=== PATIENT | female | born 1965 | race Caucasian/White ===

== ENCOUNTER → 2016-08-30 | Outpatient (CLI) | payer BC ==
--- NOTE | 2016-08-31 10:49 | MM ---
Reason for exam: screening (asymptomatic). Last mammogram was performed 1 year and 1 month ago. History: Patient is postmenopausal. Physical Findings: A clinical breast exam by your physician is recommended on an annual basis and results should be correlated with mammographic findings. MG 3D Screening Mammo W/Cad Bilateral CC and MLO view(s) were taken. Prior study comparison: August 07, 2015, bilateral MG 3d screening mammo w/cad. November 04, 2014, left breast MG diagnostic mammo LT w CAD. The breast tissue is extremely dense which could obscure a lesion on mammography. There is no discrete abnormality. No significant changes when compared with prior studies. ASSESSMENT: Negative, BI-RAD 1 RECOMMENDATION: Routine screening mammogram of both breasts in 1 year.
== END | disposition home or self-care (01) ==
LOC: RADMAMWWP 06:57
PROVIDERS: ATTEND Family Medicine
DX: Z12.31 Encounter for screening mammogram for malignant neoplasm of breast (principal)
CPT/HCPCS: 77063; G0202

== ENCOUNTER 2017-01-10 07:59 | Day surgery (SDC) | payer BC ==
[2017-01-05 15:29] VITALS: BMI 18.4
[~2017-01-10 07:59] MED LIST: LACTATED RINGERS 1,000 ML IV SCH; LIDOCAINE 1% 20 ML VIAL (10MG/ML) FOR IV START INTRADERMA PRN
[2017-01-10 08:17] VITALS: RESP 16; TEMP 97.9
[2017-01-10] MEDS ORDERED: LIDOCAINE 1% INJ 10MG/ML (20 ML MDV) ONE (08:31)
[2017-01-10] MEDS ORDERED: PROPOFOL 10 MG/ML 20 ML VIAL IV ONE (08:31)
[2017-01-10] MEDS ORDERED: LACTATED RINGERS 1,000 ML IV ONE (08:59)
--- NOTE | 2017-01-10 09:07 | P.OP ---
Date of Procedure: 01/10/17 Preoperative Diagnosis: Blood per rectum Postoperative Diagnosis: Internal and external hemorrhoids Procedure(s) Performed: Colonoscopy Implants: Anesthesia: NIC Surgeon: Annika Young Estimated Blood Loss (ml): 0 IV fluids (ml): 1,000 Pathology: none sent Condition: stable Disposition: PACU Indications for Procedure: Blood per rectum, weight loss Operative Findings: Tortuous bowel, internal/external hemorrhoids Description of Procedure: Patient was taken to the endoscopy suite and placed in the left lateral decubitus position. Sedation was administered. Rectal examination was performed. Patient was noted to have external hemorrhoids. She had good sphincter tone no masses. Colonoscope was passed through the anus into the rectum. Was passed through the sigmoid colon up to the splenic flexure. Was passed through the transverse colon hepatic flexure and right colon down to the area of the cecum. Approximately 9 minutes were taken to withdraw the scope from the cecum. Careful attention to mucosal detail was performed. No mucosal lesions of concern were identified in the cecum or right colon. No mucosal lesions of concern noted in the transverse colon. No mucosal lesions of concern in the left colon or sigmoid colon. The scope was brought down into the rectum where it was retroflexed and internal hemorrhoids were identified. Impression/plan: 1. Internal/external hemorrhoids 2. tortous bowel Plan: 1. conservative managment 2. repeat scope 7-10 years
--- NOTE | 2017-01-10 09:08 | P.DS ---
Providers Attending physician: Annika Young Primary care physician: Malcom Cee Plan - Discharge Summary New Discharge Prescriptions: No Action Diphenoxylate HCl/Atropine [Lomotil] 1 tab PO DAILY PRN PRN Reason: Diarrhea Fluticasone/Salmeterol [Advair 250-50 Diskus] 1 inhalation PO DAILY Magnesium 400 mg PO DAILY Discharge Medication List Diphenoxylate HCl/Atropine [Lomotil] 1 tab PO DAILY PRN 12/18/14 [History] Fluticasone/Salmeterol [Advair 250-50 Diskus] 1 inhalation PO DAILY 12/18/14 [ History] Magnesium 400 mg PO DAILY 12/18/14 [History] Follow up Appointment(s)/Referral(s): Annika Young MD [STAFF PHYSICIAN] - 1 Week Activity/Diet/Wound Care/Special Instructions: Do not drive today Discharge Disposition: HOME SELF-CARE
[2017-01-10 09:25] VITALS: BP 103/65; PULSE 66
== END 2017-01-10 10:33 | disposition home or self-care (01) ==
LOC: ORWHC2ENDO 07:59
PROVIDERS: ATTEND Surgery
DX: K64.4 Residual hemorrhoidal skin tags (principal); K64.8 Other hemorrhoids; Q43.8 Other specified congenital malformations of intestine; Z88.1 Allergy status to other antibiotic agents; Z91.02 Food additives allergy status; J45.909 Unspecified asthma, uncomplicated; N39.3 Stress incontinence (female) (male); R63.4 Abnormal weight loss; N60.19 Diffuse cystic mastopathy of unspecified breast; Z79.899 Other long term (current) drug therapy; Z79.52 Long term (current) use of systemic steroids; Z90.711 Acquired absence of uterus with remaining cervical stump
CPT/HCPCS: 45378; J2001; J2704

== ENCOUNTER → 2017-11-22 | Outpatient (CLI) | payer BC ==
--- NOTE | 2017-11-24 10:44 | MM ---
Reason for exam: screening (asymptomatic). Last mammogram was performed 1 year and 3 months ago. History: Patient is postmenopausal. Physical Findings: A clinical breast exam by your physician is recommended on an annual basis and results should be correlated with mammographic findings. MG 3D Screening Mammo W/Cad Bilateral CC and MLO view(s) were taken. Prior study comparison: August 30, 2016, bilateral MG 3d screening mammo w/cad. August 07, 2015, bilateral MG 3d screening mammo w/cad. The breast tissue is extremely dense which could obscure a lesion on mammography. No significant changes when compared with prior studies. ASSESSMENT: Negative, BI-RAD 1 RECOMMENDATION: Routine screening mammogram of both breasts in 1 year. Patient should continue monthly self breast exam. A negative mammogram should not preclude additional follow up of suspicious palpable abnormalities.
== END | disposition home or self-care (01) ==
LOC: RADMAMWWP 07:05
PROVIDERS: ATTEND Obstetrics & Gynecology
DX: Z12.31 Encounter for screening mammogram for malignant neoplasm of breast (principal)
CPT/HCPCS: 77063; 77067

== ENCOUNTER → 2017-12-28 | Outpatient (CLI) | payer BC ==
[2017-12-28 07:25] LABS: HGB 13.5 gm/dL (11.4-16.0); MCH 29.6 pg (25.0-35.0); MCHC 32.1 g/dL (31.0-37.0); MCV 92.2 fL (80.0-100.0); Mean Platelet Volume 7.1; Platelet Count 226 k/uL (150-450); RBC 4.55 m/uL (3.80-5.40); RDW 12.6 % (11.5-15.5); WBC 3.6 k/uL (3.8-10.6)
[2017-12-28 07:52] LABS: ALT 32 U/L (9-52); AST 25 U/L (14-36); Alkaline Phosphatase 42 U/L (38-126); Anion Gap 4 mmol/L; Blood Urea Nitrogen 17 mg/dL (7-17); Calcium 9.6 mg/dL (8.4-10.2); Carbon Dioxide 30 mmol/L (22-30); Chloride 105 mmol/L (98-107); Cholesterol 211 mg/dL (<200); Glucose 89 mg/dL (74-99); HDL Cholesterol 99 mg/dL (40-60); LDL Cholesterol,Calculated 103 mg/dL (0-99); Sodium 139 mmol/L (137-145); Total Bilirubin 0.7 mg/dL (0.2-1.3); Total Protein 6.6 g/dL (6.3-8.2); Triglycerides 46 mg/dL (<150)
[2017-12-28 08:03] LABS: T4, Free (Free Thyroxine) 0.89 ng/dL (0.78-2.19)
[2017-12-28 12:06] LABS: Vitamin D 25 Hydroxy 25.1 ng/mL (30.0-100.0)
[2018-01-01 20:51] LABS: Large VLDL Particle Number,NMR <1.5 nmol/L (<=2.7)
== END | disposition home or self-care (01) ==
LOC: LABWHC1 06:42
PROVIDERS: ATTEND Obstetrics & Gynecology
DX: N95.1 Menopausal and female climacteric states (principal); Z13.220 Encounter for screening for lipoid disorders; Z13.1 Encounter for screening for diabetes mellitus
CPT/HCPCS: 36415; 80053; 80061; 82306; 82670; 83001; 83002; 83704; 84439; 84443; 84479; 85027

== ENCOUNTER → 2018-08-15 | Outpatient (CLI) | payer BC ==
--- NOTE | 2018-08-15 10:08 | MM ---
Reason for exam: clinical finding. Last mammogram was performed 9 months ago. History: Took hormonal contraceptives beginning at age 20. Indicated problem(s): palpable abnormality in both breasts. Physical Findings: Nurse Summary: 0.5cm nodule in the right breast at 2 o'clock and a 0.5cm nodule in the left breast at 1 o'clock (nurse ms). MG 3D Diag Mammo W/Cad DAWN Bilateral CC and MLO view(s) were taken. Prior study comparison: November 22, 2017, bilateral MG 3d screening mammo w/cad. August 30, 2016, bilateral MG 3d screening mammo w/cad. The breast tissue is extremely dense which could obscure a lesion on mammography. Rounded asymmetries on CC views only bilaterally at palpable sites. Ultrasound will be performed per physician order. These results were verbally communicated with the patient and result sheet given to the patient on 08/15/18. ASSESSMENT: Incomplete: need additional imaging evaluation, BI-RAD 0 RECOMMENDATION: Ultrasound of both breasts.
--- NOTE | 2018-08-15 10:13 | USB ---
Reason for exam: clinical finding. History: Took hormonal contraceptives beginning at age 20. Indicated problem(s): palpable abnormality in both breasts. US Breast BILAT Right complete breast ultrasound includes all four quadrants, the retroareolar region and axilla. Finding demonstrates a 0.8 x 0.3 x 0.7cm cystic cluster at 1 o'clock, a 2.5 x 0.9 x 1.4cm cystic lesion at 2 o'clock, two adjacent cysts at BB and a 1.0 x 0.4 x 0.6cm mixed lesion at 5 o'clock, complicated cyst with thin sepatations. Left complete breast ultrasound includes all four quadrants, the retroareolar region and axilla. Finding demonstrates a 0.8 x 0.3 x 0.6cm mixed lesion at 1 o'clock, a 0.8 x 0.3 x 0.8cm mixed lesion at 4 o'clock complicated cysts with thin septations, and a 1.0 x 0.4 x 0.9cm vascular, cystic cluster at 11 o'clock BB. These results were verbally communicated with the patient and result sheet given to the patient on 08/15/18. ASSESSMENT: Benign, BI-RAD 2 RECOMMENDATION: Routine screening mammogram of both breasts in 1 year.
== END | disposition home or self-care (01) ==
LOC: RADMAMWWP 08:16
PROVIDERS: ATTEND Family Medicine
DX: N63.12 Unspecified lump in the right breast, upper inner quadrant (principal)
CPT/HCPCS: 77062; 77066

== ENCOUNTER → 2018-08-23 | Outpatient (CLI) | payer BC ==
[2018-08-23 15:33] VITALS: BP 104/74; PULSE 84; RESP 16; TEMP 97.9; BMI 19.5
--- NOTE | 2018-08-23 16:10 | P.GSHP ---
History of Present Illness H&P Date: 08/23/18 Chief Complaint: lump in both breast Archana is a 53 year old white female who noted a lump in her right breast about two weeks ago. She underwent a bilateral mammogram on . This revealed extremely dense breast tissue and a bilateral ultrasound was ordered. On the ultrasound the patient was noted in the right breast to have multiple cystic clusters and in the left breast she was also noted to have multiple cystic clusters. This was felt to be benign BIRADS 2 and routine screening of both breast in 1 year was recommended. The patient however continues to feel probable change in the right breast. She does not complain of any pain in her breast. She has had a hysterectomy and is not sure when her menstrual cycles would be, although she does feel cyclical changes in her body. She drinks one to 2 cups of coffee per day. Occasionally eats dark chocolate, does not drink soda or other caffeinated beverages. Family History: father: melanoma mother: cervical cells atypical Hormonal History: menarche: 15 breast fed: yes, first born at 27 Patient had a blood Test done last year and was told there is no indication that she is menopausal at this time she did have a hysterectomy at the age of 36, done for bleeding BCP: 16 years hormones: none Past surgical history: 1. Hysterectomy ovaries were not removed 2. Left inguinal hernia repair 3. Bladder suspension 4. right wrist surgery Past medical history: 1. Connective tissue disease 2. Asthma 3. IBS Social History: smoke: none alcohol: 1 glass of wine/week drugs: none - Constitutional Constitutional: Denies chills, Denies fever - EENT Eyes: denies blurred vision, denies pain Ears: deny: decreased hearing, tinnitus Ears, nose, mouth and throat: Denies headache, Denies sore throat - Breasts Breasts: bilateral: as per HPI - Cardiovascular Cardiovascular: Denies chest pain, Denies shortness of breath - Respiratory Comment: asthma - Gastrointestinal Comment: had a colonoscopy 2016, all [place] Gastrointestinal: Reports diarrhea - Genitourinary (Female) Comment: bladder suspension Genitourinary: Denies dysuria, Denies hematuria - Menstruation Menstruation: Reports post hysterectomy - Musculoskeletal Comment: connective tissue disease Musculoskeletal: Denies myalgias - Integumentary Integumentary: Denies pruritus, Denies rash - Neurological Neurological: Denies numbness, Denies weakness - Psychiatric Psychiatric: Denies anxiety, Denies depression - Endocrine Endocrine: Denies fatigue, Denies weight change - Hematologic/Lymphatic Comment: none - Allergic/Immunologic Comment: none Past Medical History Past Medical History: Asthma Additional Past Medical History / Comment(s): IBS, weight loss History of Any Multi-Drug Resistant Organisms: None Reported Past Surgical History: Hernia Repair, Hysterectomy, Orthopedic Surgery Additional Past Surgical History / Comment(s): rt hand and wrist surgery, several colonoscopies Past Anesthesia/Blood Transfusion Reactions: Family History of Problems w/ Anesthesia, Motion Sickness, Postoperative Nausea & Vomiting (PONV) Additional Past Anesthesia/Blood Transfusion Reaction / Comment(s): family-PONV Past Psychological History: No Psychological Hx Reported Smoking Status: Never smoker Past Alcohol Use History: None Reported Past Drug Use History: None Reported - Past Family History Mother Family Medical History: No Reported History Medications and Allergies Home Medications Medication Instructions Recorded Confirmed Type Diphenoxylate HCl/Atropine 1 tab PO DAILY PRN 12/18/14 08/23/18 History [Lomotil] Allergies Allergy/AdvReac Type Severity Reaction Status Date / Time gluten Allergy Severe Diarrhea Verified 08/23/18 15:33 Milk Containing Products Allergy Severe Diarrhea Verified 08/23/18 15:33 [Dairy] Surgical - Exam Vital Signs Temp Pulse Resp BP Pulse Ox 97.9 F 84 16 104/74 97 08/23/18 15:28 08/23/18 15:28 08/23/18 15:28 08/23/18 15:28 08/23/18 15:28 BMI 19.6 - General well developed, well nourished, no distress - Eyes normal ocular movement - ENT no hearing loss, no congestion - Neck no masses, trachea midline - Respiratory normal respiratory effort, clear to auscultation - Cardiovascular Rhythm: regular Heart Sounds: normal: S1, S2 - Abdomen Abdomen: soft, non tender, no guarding, no rigid, no rebound - Integumentary no rash, no abnormal pigmentation - Neurologic no disoriented, no combative - Musculoskeletal normal gait, normal posture - Psychiatric oriented to time, oriented to person, oriented to place, speech is normal, memor y intact breast exam: Right breast: Multi-positional exam fibrocystic changes, dense breast, increased nodularity in the 2 to 3 o'clock position [place]: Shoddy adenopathy Left breast: Multi-positional exam fibrocystic changes, dense breast Left axilla: Shoddy adenopathy Results Mammogram and ultrasound revealed Assessment and Plan Assessment: Impression: 1. Abnormal bilateral mammogram 2. Abnormal ultrasound bilateral/cyst 3. Dense breasts 4. Fibrocystic breast changes 5. Nodularity right breast 3 o'clock position 6. Family history of melanoma 7. Asthma 8. Connective tissue disease uncertain as to etiology I discussed with the patient the fact that she has dense fibrocystic breast disease, and there is an area of increased nodularity 3 o'clock position in the right breast. We have talked about the option of an FNA and if this is benign in conjunction with her radiographic findings were most likely follow this with a repeat ultrasound in 3-4 months. The patient understands that this is atypical cells would recommend open excision in the operating room. She understands the risks and benefits and wishes to proceed. We have discussed stopping caffeine, and she is going to try. Plan: 1. Repeat bilateral mammogram and ultrasound in 1 year 2. FNA area of concern in the right breast at 3:00 3. Patient is going to stop her caffeine and see if this decreases the fibrocystic changes in her breast 4. Medical management of medical conditions CC: Dr. Cee
--- NOTE | 2018-08-23 16:21 | P.PCN ---
Date of Procedure: 08/23/18 Preoperative Diagnosis: Nodularity right breast 3:00 Postoperative Diagnosis: same Procedure(s) Performed: FNA right breast Surgeon: Annika Young Estimated Blood Loss (ml): 0 Pathology: other (cytology) Condition: stable Disposition: same day Indications for Procedure: Nodularity right breast Description of Procedure: The area of concern in the right breast was prepped using alcohol. A 22-gauge needle attached to 10 mL syringe was passed into the specimen vacuum suction was applied to the end of the syringe. Several passes were made into the area of concern. The specimen was retrieved and placed on a slide. A Band-Aid was placed over the area on the skin. Patient tolerated the procedure in stable condition. Specimen sent to pathology.
== END ==
LOC: WWCWWP 15:24
PROVIDERS: ATTEND Surgery
DX: N63.12 Unspecified lump in the right breast, upper inner quadrant (principal)
CPT/HCPCS: 88173; 88305

== ENCOUNTER → 2018-09-21 | Outpatient (CLI) | payer BC ==
[2018-09-21 13:49] VITALS: BP 116/70; PULSE 65; RESP 18; TEMP 97.3; BMI 19.5
--- NOTE | 2018-09-21 14:13 | P.GSHP ---
History of Present Illness H&P Date: 09/21/18 Chief Complaint: Nodule right breast The patient is a 53-year-old white female who noted a nodule in her right breast several weeks ago. She had a bilateral mammogram and [id number]. This revealed extremely dense breast tissue and she had a bilateral ultrasound performed. On the ultrasound she was noted in the right breast of multiple cystic clusters and in the left breast was noted to have multiple cystic clusters. This was felt to be benign BIRADS 2 and routine screening of both breasts in 1 year was recommended. However the patient continued to fill a change in her right breast and she was seen and an FNA was done of that area. The FNA revealed lipid droplet containing histiocytes and otherwise hypocellular aspiration suggestive of fat necrosis. Clinical correlation was suggested the possibility of incomplete sampling. After discussion with the patient we have opted to do an excision in the operating room of the palpable abnormality. The patient stated that she drank one to 2 cups of coffee per day and occasionally eats dark chocolate. She does not drink soda or other caffeinated beverages. She does not smoke. She has cut down in her coffee consumption but the area of nodularity remains persistent. Family history: Father: Melanoma Mother: Cervical cells with some atypia Hormonal history: Menarche: 15 , breast fed: Yes First born at 27 Menopause: Patient had a hysterectomy at the age of 36 ovaries were not removed control pills: 16 years Hormones: Negative Past surgical history: 1. Hysterectomy ovaries were not removed 2. Left inguinal hernia repair 3. Bladder suspension 4. Right wrist surgery. Past medical history: 1. Connective tissue disease 2. Asthma 2. Irritable bowel syndrome Social history: Smoke: Negative Alcohol: One glass of wine per week Drugs: Negative - Constitutional Constitutional: Denies chills, Denies fever - EENT Eyes: denies blurred vision, denies pain Ears: deny: decreased hearing, tinnitus Ears, nose, mouth and throat: Denies headache, Denies sore throat - Breasts Breasts: bilateral: as per HPI - Cardiovascular Cardiovascular: Denies chest pain, Denies shortness of breath - Respiratory Comment: asthma - Gastrointestinal Comment: IBS Gastrointestinal: Denies abdominal pain, Denies diarrhea, Denies nausea, Denies vomiting - Genitourinary (Female) Comment: bladder suspension - Menstruation Menstruation: Reports post hysterectomy - Musculoskeletal Comment: connective tissue disease - Integumentary Integumentary: Denies pruritus, Denies rash - Neurological Neurological: Denies numbness, Denies weakness - Psychiatric Psychiatric: Denies anxiety, Denies depression - Endocrine Endocrine: Reports fatigue - Hematologic/Lymphatic Comment: none - Allergic/Immunologic Allergic/Immunologic: Reports as per HPI Past Medical History Past Medical History: Asthma Additional Past Medical History / Comment(s): IBS. History of Any Multi-Drug Resistant Organisms: None Reported Past Surgical History: Hernia Repair, Hysterectomy, Orthopedic Surgery Additional Past Surgical History / Comment(s): Right hand and wrist surgery, several colonoscopies. Past Anesthesia/Blood Transfusion Reactions: Family History of Problems w/ Anesthesia, Motion Sickness, Postoperative Nausea & Vomiting (PONV) Additional Past Anesthesia/Blood Transfusion Reaction / Comment(s): Family-PONV. Past Psychological History: No Psychological Hx Reported Smoking Status: Never smoker Past Alcohol Use History: Occasional Past Drug Use History: None Reported - Past Family History Mother Family Medical History: No Reported History Medications and Allergies Home Medications Medication Instructions Recorded Confirmed Type Diphenoxylate HCl/Atropine 1 tab PO DAILY PRN 12/18/14 09/21/18 History [Lomotil] Cholecalciferol [Vitamin D3 (25 5,000 unit PO DAILY 09/21/18 09/21/18 History Mcg = 1000 Iu)] Allergies Allergy/AdvReac Type Severity Reaction Status Date / Time gluten Allergy Severe Diarrhea Verified 09/21/18 13:49 Milk Containing Products Allergy Severe Diarrhea Verified 09/21/18 13:49 [Dairy] Surgical - Exam Vital Signs Temp Pulse Resp BP Pulse Ox 97.3 F L 65 18 116/70 99 09/21/18 13:46 09/21/18 13:46 09/21/18 13:46 09/21/18 13:46 09/21/18 13:46 BMI 19.6 - General well developed, well nourished, no distress - Eyes normal ocular movement - ENT no hearing loss - Neck no masses, trachea midline - Respiratory normal respiratory effort, clear to auscultation - Cardiovascular Rhythm: regular Heart Sounds: normal: S1, S2 - Abdomen Abdomen: soft - Integumentary turgor normal - Neurologic no disoriented, no combative - Musculoskeletal normal gait, normal posture - Psychiatric oriented to time, oriented to place, memory intact breast exam: Breasts: right breast: Multiple positional exam increased nodularity 1 to 2 o'clock position discrete from the surrounding tissue, FNA nondiagnostic Right axilla: No adenopathy of concern Left breast: Multiple positional exam fibrocystic changes no dominant masses or nodules of concern Left axilla: No adenopathy of concern Results Mammogram and ultrasound reports reviewed Assessment and Plan Assessment: Impression: 1. Persistent right breast nodule on the 2 o'clock position 2. FNA nondiagnostic of the right breast 3. Dense breast 4. Fibrocystic breast changes 5. Family history of melanoma 6. History of asthma 7. Connective tissue disease uncertain as to etiology We have had a discussion regarding the results of the FNA. I discussed that I cannot tell with certainty what the area of nodularity is without resection. The area is somewhat elusive however is definitely present. After discussion the patient wishes this area be excised. She understands the risks and benefits and wishes to proceed. Plan: 1. Right breast excisional biopsy of palpable abnormality 1 to 2 o'clock position 2. Patient has decreased her caffeine intake and will continue to do so 3. Medical management of medical conditions Cc: Dr. Cee
== END | disposition home or self-care (01) ==
LOC: WWCWWP 13:32
PROVIDERS: ATTEND Surgery
DX: Z53.9 Procedure and treatment not carried out, unspecified reason (principal)

== ENCOUNTER → 2018-09-24 | Day surgery (SDC) | payer BC ==
[2018-09-21 08:39] VITALS: BMI 18.8
[~2018-09-24] MED LIST changes: +DEXAMETHASONE SOD PHOSPHATE 10 MG/ML 1 ML VIAL IV ONE; +HEPARIN SODIUM,PORCINE 5,000 UNIT/ML 1 ML VIAL SQ ONE; +LACTATED RINGERS 1,000 ML IV ONE; +LIDOCAINE 1% 20 ML VIAL (10MG/ML) FOR IV START INTRADERMA ONE; -LIDOCAINE 1% 20 ML VIAL (10MG/ML) FOR IV START INTRADERMA PRN; +LIDOCAINE 1% INJ 10MG/ML (20 ML MDV) ONE; +LIDOCAINE 1% INJ 10MG/ML (20 ML MDV) SQ ONE; +MIDAZOLAM 2 MG/2 ML VIAL IV PRN; +MIDAZOLAM 2 MG/2 ML VIAL ONE; +ONDANSETRON 4 MG/2 ML VIAL IVP ONE; +PROPOFOL 10 MG/ML 20 ML VIAL IV ONE; +SCOPOLAMINE 1.5MG/72HR PATCH TRANSDERM ONE; +WATER FOR INJECTION, STERILE 10 ML VIAL IV ONE; +ceFAZolin IN SWFI 2 GM/20 ML SYRINGE IVP ONE; +ePHEDrine SULFATE/0.9% NACL/PF 50 MG/5 ML SYRINGE IV ONE; +fentaNYL (PF) 50 MCG/ML 2 ML AMP ONE
[2018-09-24 07:17] VITALS: RESP 16
--- NOTE | 2018-09-24 08:59 | P.OP ---
Date of Procedure: 09/24/18 Preoperative Diagnosis: Nodule right breast, FNA nondiagnostic Postoperative Diagnosis: Same Procedure(s) Performed: Excisional biopsy of palpable nodularity right breast Anesthesia: LINDA Surgeon: Annika Young Estimated Blood Loss (ml): 5 IV fluids (ml): 1,000 Pathology: other (breast tissue) Condition: stable Disposition: same day Indications for Procedure: Palpable nodule right breast, FNA nondiagnostic Operative Findings: Dense breast tissue Description of Procedure: The patient is a 53-year-old white female who presented with a palpable nodule in her right breast. An FNA was nondiagnostic. Nodularity was persistent without specific radiographic correlation. After discussion the patient wishes for excisional biopsy. The patient was taken to the operating room and following induction of anesthesia the right breast was prepped and draped in a sterile fashion. A circumareolar incision was made and carried down to the breast tissue. The breast tissue was dissected in the anterior plane skin. The dissection was performed on the area of the palpable abnormality. The area of concern was then excised. Further mobilization of the breast tissue was performed in the anterior pectoralis fascial plane. Approximately 20 cm of tissue was mobilized, such that an onco-plastic closure could be performed. The deep tissues were reapproximated in an onco plastic fashion using 3-0 Vicryl suture. The skin was then closed using 3-0 Vicryl in the subcutaneous tissue followed by 4-0 Monocryl in a subcuticular area. Steri-Strips were placed. All instrument and sponge counts were correct at the end of the case. The patient tolerated the procedure in stable condition. The specimen was painted for orientation.
--- NOTE | 2018-09-24 09:01 | P.DS ---
Providers Attending physician: Annika Young Primary care physician: Malcom Cee Plan - Discharge Summary Discharge Rx Participant: No New Discharge Prescriptions: No Action Diphenoxylate HCl/Atropine [Lomotil] 1 tab PO DAILY PRN PRN Reason: Diarrhea Cholecalciferol [Vitamin D3 (25 Mcg = 1000 Iu)] 5,000 unit PO DAILY Tamsulosin HCl [Flomax] 0.4 mg PO DAILY Discharge Medication List Diphenoxylate HCl/Atropine [Lomotil] 1 tab PO DAILY PRN 12/18/14 [History] Cholecalciferol [Vitamin D3 (25 Mcg = 1000 Iu)] 5,000 unit PO DAILY 09/21/18 [History] Tamsulosin HCl [Flomax] 0.4 mg PO DAILY 09/24/18 [History] Follow up Appointment(s)/Referral(s): Annika Young MD [STAFF PHYSICIAN] - 1 Week Activity/Diet/Wound Care/Special Instructions: Do not drive today Patient may shower after 48 hours Discharge Disposition: HOME SELF-CARE
[2018-09-24 09:18] VITALS: TEMP 97
[2018-09-24] MEDS: HYDROmorphone 0.5 MG/0.5 ML SYRINGE IVP PRN ×4 (09:23→09:59)
[2018-09-24 10:28] VITALS: BP 119/73
[2018-09-24 10:29] VITALS: PULSE 63
== END | disposition home or self-care (01) ==
LOC: OR 07:03
PROVIDERS: ATTEND Surgery
DX: N60.11 Diffuse cystic mastopathy of right breast (principal); N60.81 Other benign mammary dysplasias of right breast; N60.31 Fibrosclerosis of right breast; R92.0 Mammographic microcalcification found on diagnostic imaging of breast; Z80.8 Family history of malignant neoplasm of other organs or systems; Z90.710 Acquired absence of both cervix and uterus; L94.9 Localized connective tissue disorder, unspecified; J45.909 Unspecified asthma, uncomplicated; K58.9 Irritable bowel syndrome, unspecified; Z91.02 Food additives allergy status; Z91.011 Allergy to milk products
CPT/HCPCS: 88307; 19120; J2250; J1644; J1100; J2405; J2001; J3010; J2704; J1170; J0690

== ENCOUNTER → 2018-09-28 | Outpatient (CLI) | payer BC ==
[2018-09-28 09:06] VITALS: BP 114/66; PULSE 74; RESP 16; TEMP 97.9; BMI 18.8
--- NOTE | 2018-09-28 09:44 | P.PN ---
Progress Note - Text Progress Note Date: 09/28/18 Patient is status post right breast biopsy on 09-24-18. Her pathology is benign fibrocystic changes. The patient has no postoperative complaints. Physical exam: Lungs: Clear Heart: Regular rate and rhythm Incision: Right breast clean and dry evidence of any infection Impression: Fibrocystic breast changes 2. No evidence of any cancer Plan: 1. Bilateral ultrasound in 4 months CC: Dr. Cee
== END | disposition home or self-care (01) ==
LOC: WWCWWP 08:52
PROVIDERS: ATTEND Surgery
DX: Z53.9 Procedure and treatment not carried out, unspecified reason (principal)

== ENCOUNTER → 2018-12-17 | Outpatient (CLI) | payer BC ==
--- NOTE | 2018-12-17 08:38 | USB ---
Reason for exam: clinical finding. History: Took hormonal contraceptives beginning at age 20. Physical Findings: Nurse did not find any significant physical abnormalities on exam. US Breast BILAT Right complete breast ultrasound includes all four quadrants, the retroareolar region and axilla. Finding demonstrates a 9 x 4 x 9mm oval, cystic lesion at 2 o'clock, a 5 x 3 x 6mm oval, cystic lesion at 9 o'clock and a 6 x 3 x 5mm oval, cystic lesion at 11 o'clock. Left complete breast ultrasound includes all four quadrants, the retroareolar region and axilla. Finding demonstrates a 1.7 x 0.3 x 1.6cm cystic cluster at 11 o'clock. These results were verbally communicated with the patient and result sheet given to the patient on 12/17/18. ASSESSMENT: Benign, BI-RAD 2 RECOMMENDATION: Routine screening mammogram of both breasts in 8 months. Back on schedule for August 2019.
== END | disposition home or self-care (01) ==
LOC: RADUSWWP 07:08
PROVIDERS: ATTEND Surgery
DX: R92.8 Other abnormal and inconclusive findings on diagnostic imaging of breast (principal)

== ENCOUNTER → 2019-01-04 | Outpatient (CLI) | payer BC ==
[2019-01-04 15:58] VITALS: BP 111/73; PULSE 78; RESP 16; TEMP 98; BMI 19.8
--- NOTE | 2019-01-04 16:08 | P.PN ---
Subjective Progress Note Date: 01/04/19 Archana is a 53-year-old white female who comes for breast evaluation. [place] [address] this was negative BIRADS 1 she [place] [address] this revealed in the right breast several cystic lesions in the left breast cystic cluster at 11:00 this was felt to be benign BIRADS 2 and routine screening of both breasts in 8 months was recommended. The patient has chronic nodularity bilaterally in her breast and nothing new is changed. The patient does drink some caffeinated beverages. She does not smoke and is not exposed to secondhand smoke. She does not eat large quantities of chocolate. Family history: Father: Melanoma Hormonal history: Menarche: 14 , breast-fed: Yes for splenectomy 27 Menopause: Patient had a hysterectomy at the age of 36 ovaries were not removed control pills: 16 years Hormones: Negative Past surgical history: Hysterectomy ovaries were not removed Left inguinal hernia repair Bladder suspension Right breast surgery Medical history: Connective tissue disease Asthma Irritable bowel syndrome Social history: Smoke: Negative Alcohol: One glass of wine per week Drugs: Negative Review of systems: HEENT: Wears glasses Lungs: Negative Heart: Negative GI: Irritable bowel syndrome : Status post hysterectomy Musculoskeletal: Connective tissue disease Neurologic: Negative Hematologic: Negative Endocrine: Negative ALLERGIES: Negative Objective - Exam BMI 19.8 - Constitutional General appearance: Present: average body habitus - EENT Eyes: Present: EOMI ENT: Present: hearing grossly normal - Neck Neck: Present: normal ROM - Respiratory Respiratory: bilateral: CTA - Cardiovascular Rhythm: regular Heart sounds: normal: S1, S2 - Gastrointestinal General gastrointestinal: Present: soft - Integumentary Integumentary: Present: normal turgor - Musculoskeletal Musculoskeletal: Present: gait normal - Psychiatric Psychiatric: Present: A&O x's 3, appropriate affect, intact judgment & insight - Additional findings Additional findings: breast exam: right breast: Multi-positional exam fibrocystic changes no dominant masses or nodules of concern Right axilla: No adenopathy of concern Left breast: Multiple positional exam no dominant masses or nodules of concern fibrocystic changes Left axilla: No adenopathy of concern Assessment and Plan Assessment: Impression: 1. fibrocystic changes 2. Connective tissue disease 3. Asthma 4. Irritable bowel syndrome Plan: 1. Bilateral mammogram in 8 months 2. Medical management of medical conditions 3. Follow-up. If any questions or concerns 4. Discussed decreasing caffeinated beverages. The patient understands that caffeine theophylline and nicotine may aggravate fibrocystic breast disease. Cc: Dr. Cee
== END ==
LOC: WWCWWP 15:39
PROVIDERS: ATTEND Surgery
DX: Z53.9 Procedure and treatment not carried out, unspecified reason (principal)

== ENCOUNTER → 2019-10-03 | Outpatient (CLI) | payer BC ==
--- NOTE | 2019-10-08 08:54 | MM ---
Reason for exam: screening (asymptomatic). Last mammogram was performed 1 year and 2 months ago. History: Patient has history of other cancer at age 54. Excisional biopsy of the right breast, 2019. Took hormonal contraceptives beginning at age 20. Physical Findings: A clinical breast exam by your physician is recommended on an annual basis and results should be correlated with mammographic findings. MG 3D Screening Mammo W/Cad Bilateral CC, MLO, and XCCL view(s) were taken. Prior study comparison: August 15, 2018, bilateral MG 3d diag mammo w/cad [facility]. November 22, 2017, bilateral MG 3d screening mammo w/cad. August 30, 2016, bilateral MG 3d screening mammo w/cad. The breast tissue is extremely dense which could obscure a lesion on mammography. There is chronic nodularity in the right breast superiorly on MLO view. No significant changes when compared with prior studies. ASSESSMENT: Benign, BI-RAD 2 RECOMMENDATION: Routine screening mammogram of both breasts in 1 year. Patient should continue monthly self breast exams. A negative report should not preclude additional follow up of suspicious palpable abnormalities.
== END | disposition home or self-care (01) ==
LOC: RADMAMWWP 09:25
PROVIDERS: ATTEND Surgery
DX: Z12.31 Encounter for screening mammogram for malignant neoplasm of breast (principal)
CPT/HCPCS: 77063; 77067

== ENCOUNTER → 2019-10-10 | Outpatient (CLI) | payer BC ==
[2019-10-10 14:37] VITALS: BP 100/62; PULSE 61; RESP 18; TEMP 98.3
--- NOTE | 2019-10-10 15:58 | P.PN ---
Subjective Progress Note Date: 10/10/19 Principal diagnosis: dense fibrocystic breast disease Archana is a 53-year-old white female who comes for breast evaluation. She had a bilateral mammogram performed on 10-03-19 this was negative BIRADS 2. She does not have any masses of concern in her breast. She had recent resection of a basal cell carcinoma from the right upper chest wall. This is approximately 5 cm in length. She is awaiting pathology results. Additionally she had liquid nitrogen applied to several areas which are healing at this time. She is not complaining of any recent increased breast pain. No complaint of any nipple discharge or skin changes. The patient does drink some caffeinated beverages. She does not smoke and is not exposed to secondhand smoke. She does not eat large quantities of chocolate, some dark chocolate daily. Family history: Father: Melanoma Hormonal history: Menarche: 14 , breast-fed: Yes for splenectomy 27 Menopause: Patient had a hysterectomy at the age of 36 ovaries were not removed control pills: 16 years Hormones: Negative Past surgical history: Hysterectomy ovaries were not removed Left inguinal hernia repair Bladder suspension Right breast surgery Excision basal cell carcinoma right chest wall Medical history: Connective tissue disease Asthma Irritable bowel syndrome Social history: Smoke: Negative Alcohol: One glass of wine per week Drugs: Negative Review of systems: HEENT: Wears glasses Lungs: Negative Heart: Negative GI: Irritable bowel syndrome : Status post hysterectomy Musculoskeletal: Connective tissue disease Neurologic: Negative Hematologic: Negative Endocrine: Negative ALLERGIES: Negative Objective - Vital Signs Vital signs: Vital Signs Temp 98.3 F 10/10/19 14:35 Pulse 61 10/10/19 14:35 Resp 18 10/10/19 14:35 BP 100/62 10/10/19 14:35 Pulse Ox 97 10/10/19 14:35 Intake & Output 10/09/19 10/10/19 10/10/19 18:59 06:59 18:59 Weight 58.967 kg - Exam BMI 20.4 - Constitutional General appearance: Present: average body habitus, cooperative - EENT Eyes: Present: EOMI ENT: Present: hearing grossly normal - Neck Neck: Present: normal ROM - Respiratory Respiratory: bilateral: CTA - Cardiovascular Rhythm: regular Heart sounds: normal: S1, S2 - Gastrointestinal General gastrointestinal: Present: normal bowel sounds, soft - Integumentary Integumentary Comment(s): incision right chest wall healing Integumentary: Present: normal turgor - Musculoskeletal Musculoskeletal: Present: gait normal - Psychiatric Psychiatric: Present: A&O x's 3, appropriate affect, intact judgment & insight - Additional findings Additional findings: breast exam: BRA 32B inspection: no nipple inversion palpation: Right breast: Multi-positional exam no dominant masses or nodules of concern, fibrocystic changes Right axilla: No adenopathy of concern Left breast: Multi-positional exam no dominant masses or nodules of concern Left axilla: No adenopathy of concern Assessment and Plan Assessment: Impression: 1. fibrocystic changes bilateral 2. basal cell cancer resected right chest wall Plan: 1. repeat bilateral mammogram in 1 year 2. physician exam in one year CC: Dr. Cee encounter 20 minutes, > 50% of time in planning and counselling
== END | disposition home or self-care (01) ==
LOC: WWCWWP 14:26
PROVIDERS: ATTEND Surgery
DX: Z53.9 Procedure and treatment not carried out, unspecified reason (principal)

== ENCOUNTER → 2020-10-08 | Outpatient (CLI) | payer BC ==
--- NOTE | 2020-10-09 11:31 | MM ---
Reason for exam: screening (asymptomatic). Last mammogram was performed 1 year ago. History: Patient has history of other cancer at age 54. Excisional biopsy of the right breast, 2019. Took hormonal contraceptives beginning at age 20. Physical Findings: A clinical breast exam by your physician is recommended on an annual basis and results should be correlated with mammographic findings. MG 3D Screening Mammo W/Cad Bilateral CC and MLO view(s) were taken. Prior study comparison: October 03, 2019, bilateral MG 3d screening mammo w/cad. August 15, 2018, bilateral MG 3d diag mammo w/cad [facility]. The breast tissue is heterogeneously dense. This may lower the sensitivity of mammography. There is no discrete abnormality. ASSESSMENT: Benign, BI-RAD 2 RECOMMENDATION: Routine screening mammogram of both breasts in 1 year.
== END | disposition home or self-care (01) ==
LOC: RADMAMWWP 09:17
PROVIDERS: ATTEND Surgery
DX: Z12.31 Encounter for screening mammogram for malignant neoplasm of breast (principal)
CPT/HCPCS: 77063; 77067

== ENCOUNTER → 2020-10-15 | Outpatient (CLI) | payer BC ==
[2020-10-15 10:33] VITALS: BP 126/84; PULSE 75; RESP 14; TEMP 98.3
--- NOTE | 2020-10-15 10:34 | P.PN ---
Subjective Progress Note Date: 10/15/20 Principal diagnosis: fibrocystic breast dense fibrocystic breast disease Archana is a 55-year-old white female who comes for breast evaluation. She had a bilateral mammogram performed on 10-08-20 this was benign BIRADS 2. She does not have any masses of concern in her breast. She has had a resection of a basal cell carcinoma from the right upper chest wall. This is approximately 5 cm in length. She is following at [facility]. Additionally she had liquid nitrogen applied to several areas which are healing at this time. She is not complaining of any recent increased breast pain. No complaint of any nipple discharge or skin changes. Does not complain of any new lumps masses or nodules in her breast. Caffeine: One to 2 cups of coffee per day Nicotine: Negative Chocolate: Occasional Family history: Father: Melanoma Hormonal history: Menarche: 14 , breast-fed: Yes for splenectomy 27 Menopause: Patient had a hysterectomy at the age of 36 ovaries were not removed control pills: 16 years Hormones: Negative Past surgical history: Hysterectomy ovaries were not removed Left inguinal hernia repair Bladder suspension Right breast surgery Excision basal cell carcinoma right chest wall Medical history: Connective tissue disease Asthma Irritable bowel syndrome Social history: Smoke: Negative Alcohol: One glass of wine per week Drugs: Negative Review of systems: HEENT: Wears glasses Lungs: Negative Heart: Negative GI: Irritable bowel syndrome : Status post hysterectomy Musculoskeletal: Connective tissue disease Neurologic: Negative Hematologic: Negative Endocrine: Negative ALLERGIES: Negative Objective - Constitutional General appearance: Present: cooperative - EENT Eyes: Present: EOMI ENT: Present: hearing grossly normal - Neck Neck: Present: normal ROM - Respiratory Respiratory: bilateral: CTA - Cardiovascular Rhythm: regular Heart sounds: normal: S1, S2 - Integumentary Integumentary: Present: normal turgor - Musculoskeletal Musculoskeletal: Present: gait normal - Psychiatric Psychiatric: Present: A&O x's 3, appropriate affect, intact judgment & insight - Additional findings Additional findings: Breast exam: BRA: 34A Inspection: Grade 2 ptosis bilateral Palpation: Right breast: Positional exam fibrocystic breasts with no discrete dominant masses or nodules of concern Right axilla: No adenopathy of concern Left breast: Multiple positional exam fibrocystic changes no dominant masses or nodules of concern Left axilla: No adenopathy of concern Assessment and Plan Assessment: Impression: 1. Fibrocystic breast changes bilateral 2. Basal cell cancer resected right chest wall/patient following a [facility] Plan: 1. Repeat bilateral mammogram in 1 year 2. Physician exam at that time 3. Patient bilateral mammogram 6321 benign BIRADS 2 CC: Dr. Cee
== END ==
LOC: WWCWWP 10:17
PROVIDERS: ATTEND Surgery
DX: N60.11 Diffuse cystic mastopathy of right breast (principal); N60.12 Diffuse cystic mastopathy of left breast; J45.909 Unspecified asthma, uncomplicated; C44.519 Basal cell carcinoma of skin of other part of trunk; Z98.890 Other specified postprocedural states; Z91.011 Allergy to milk products; Z91.018 Allergy to other foods

== ENCOUNTER → 2021-10-11 | Outpatient (CLI) | payer BC ==
--- NOTE | 2021-10-13 07:55 | MM ---
Reason for Exam: Screening (asymptomatic). Last screening mammogram was performed 12 month(s) ago. Patient History: Menarche at age 15. First Full-Term at age 27. Hysterectomy at age 36. Other cancer, age 54. Hormonal Contraceptives, from age 20 until age 36. 2019, Excisional Biopsy on the Right side. Risk Values: Eva 5 year model risk: 1.5%. NCI Lifetime model risk: 10.8%. Prior Study Comparison: 08/15/2018 Bilateral Diagnostic Mammogram, [facility]. 10/03/2019 Bilateral Screening Mammogram, [facility]. 10/08/2020 Bilateral Screening Mammogram, [facility]. Tissue Density: The breast tissue is extremely dense which could obscure a lesion on mammography. Findings: Analyzed By CAD. There is no suspicious group of microcalcifications or new suspicious mass in either breast. Stable benign calcifications. Overall Assessment: Benign, BI-RAD 2 Management: Screening Mammogram of both breasts in 1 year. A clinical breast exam by your physician is recommended on an annual basis and results should be correlated with mammographic findings. Electronically signed and approved by: Grant Sanchez M.D. Radiologis
== END | disposition home or self-care (01) ==
LOC: RADMAMWWP 07:27
PROVIDERS: ATTEND Surgery
DX: Z12.31 Encounter for screening mammogram for malignant neoplasm of breast (principal)
CPT/HCPCS: 77063; 77067

== ENCOUNTER → 2021-10-14 | Outpatient (CLI) | payer BC ==
[2021-10-14 08:56] VITALS: BP 126/72; PULSE 73; RESP 16; TEMP 98
--- NOTE | 2021-10-14 09:14 | P.PN ---
Subjective Progress Note Date: 10/14/21 Principal diagnosis: fibrocystic breast changes fibrocystic breast dense fibrocystic breast disease Archana is a 55-year-old white female who comes for breast evaluation. She had a bilateral mammogram performed on 10-11-21 this was benign BIRADS 2. She does not have any masses of concern in her breast. She has had a resection of a basal cell carcinoma from the right upper chest wall. This was approximately 5 cm in length. She is following at [facility]. Additionally she had liquid nitrogen applied to several areas which are healing at this time. She is not complaining of any recent increased breast pain. No complaint of any nipple discharge or skin changes. Does not complain of any new lumps masses or nodules in her breast. Caffeine: One to 2 cups of coffee per day Nicotine: Negative Chocolate: Occasional Family history: Father: Melanoma Hormonal history: Menarche: 14 , breast-fed: Yes for splenectomy 27 Menopause: Patient had a hysterectomy at the age of 36 ovaries were not removed control pills: 16 years Hormones: Negative Past surgical history: Hysterectomy ovaries were not removed Left inguinal hernia repair Bladder suspension Right breast surgery Excision basal cell carcinoma right chest wall Medical history: Connective tissue disease Asthma Irritable bowel syndrome Social history: Smoke: Negative Alcohol: One glass of wine per week Drugs: Negative Review of systems: HEENT: Wears glasses Lungs: Negative Heart: Negative GI: Irritable bowel syndrome : Status post hysterectomy Musculoskeletal: Connective tissue disease Neurologic: Negative Hematologic: Negative Endocrine: Negative ALLERGIES: Negative Objective - Vital Signs Vital signs: Vital Signs Temp 98.0 F 10/14/21 08:53 Pulse 73 10/14/21 08:53 Resp 16 10/14/21 08:53 BP 126/72 10/14/21 08:53 Pulse Ox 95 10/14/21 08:53 FiO2 Intake & Output 10/13/21 10/14/21 10/14/21 18:59 06:59 18:59 Weight 62.142 kg - Exam BMI 21.5 - Constitutional General appearance: Present: cooperative - EENT Eyes: Present: EOMI ENT: Present: hearing grossly normal - Neck Neck: Present: normal ROM - Respiratory Respiratory: bilateral: CTA - Cardiovascular Rhythm: regular Heart sounds: normal: S1, S2 - Gastrointestinal General gastrointestinal: Present: soft - Integumentary Integumentary: Present: normal turgor - Musculoskeletal Musculoskeletal: Present: gait normal - Psychiatric Psychiatric: Present: A&O x's 3, appropriate affect, intact judgment & insight - Additional findings Additional findings: Breast Exam: BRA: 36A inspection: bilateral grade 2 ptosis Palpation: Right breast: Multi-positional exam fibrocystic changes no dominant masses or nodules of concern Right axilla: No adenopathy of concern Left breast: Multi-positional exam fibrocystic changes no dominant masses or nodules of concern Left axilla: No adenopathy of concern Assessment and Plan Assessment: Impression: Bilateral fibrocystic breast changes Plan: Repeat bilateral mammogram in 1 year with physician exam at that time Patient shouldn't to follow up sooner any questions or concerns CC: Dr. Pierre
== END ==
LOC: WWCWWP 08:42
PROVIDERS: ATTEND Surgery
DX: R92.8 Other abnormal and inconclusive findings on diagnostic imaging of breast (principal); N60.11 Diffuse cystic mastopathy of right breast; N60.12 Diffuse cystic mastopathy of left breast; J45.909 Unspecified asthma, uncomplicated; Z91.011 Allergy to milk products; Z91.018 Allergy to other foods

== ENCOUNTER → 2022-03-30 | Outpatient (CLI) | payer BC ==
--- NOTE | 2022-03-30 13:19 | BD ---
EXAMINATION TYPE: Axial Bone Density DATE OF EXAM: 03/30/2022 COMPARISON: NONE CLINICAL HISTORY: 57 year old Female. ICD-10 CODE: N95.1 MENOPAUSAL AND FEMALE CLIMACTERIC STATES Height: 67 Weight: 135.8 FRAX RISK QUESTIONS: Alcohol (3 or more units per day): no Family History (Parent hip fracture): no Glucocorticoids (More than 3mos): yes (Ex: prednisone, prednisolone, methylprednisolone, dexamethasone, and hydrocortisone). History of Fracture in Adulthood: yes Secondary Osteoporosis: 1. Type 1 Diabetes: no 2. Hyperthyroidism: no 3. Menopause before 45: yes 4. Malnutrition: no 5. Chronic liver disease: no Rheumatoid Arthritis: no Current Tobacco Use: no RISK FACTORS HISTORY OF: History of Wrist Fracture: bilateral wrist Surgery to Spine/Hip(right/left)/Wrist (right/left): no Family History of Osteoporosis: yes Active: yes Diet low in dairy products/other sources of calcium: yes Postmenopausal woman: yes Lost more than 2 inches in height since high school: no MEDICATIONS: Prednisone or other steroids: yes How Long: for asthma Additional History: EXAM MEASUREMENTS: Bone mineral densitometry was performed using the [employer] System. Bone mineral density as measured about the Lumbar spine is: ----- L1-L4(G/cm2): 0.995 T Score Values are as follows: ----- L1: -2.0 ----- L2: -2.1 ----- L3: -1.3 ----- L4: -1.1 ----- L1-L4: -1.5 Bone mineral density : baseline Bone mineral density about the R hip (g/cm2): 0.888 Bone mineral density about the L hip (g/cm2): 0.913 T Score values are as follows: -----R Neck: -1.1 -----L Neck: -0.9 -----R Total: -0.8 -----L Total: -0.6 Bone mineral density : baseline FRAX%s: The graph provided illustrates a 8.1% chance for a major osteoporotic fx and a 1.1% chance fo r the hips probability for fx in 10 years time. IMPRESSION: Osteopenia (T Score between -2.5 and -1). There is slightly increased risk of fracture and the patient may be considered for treatment. Re-Screen 2-5 years. NOTE: T-SCORE=SD OF THE YOUNG ADULT MEAN.
== END | disposition home or self-care (01) ==
LOC: RADBDWWP 11:16
PROVIDERS: ATTEND Obstetrics & Gynecology
DX: M85.89 Other specified disorders of bone density and structure, multiple sites (principal); Z79.52 Long term (current) use of systemic steroids
CPT/HCPCS: 77080

== ENCOUNTER → 2022-04-08 | Outpatient (CLI) | payer BC ==
--- NOTE | 2022-04-08 10:08 | US ---
EXAMINATION TYPE: US abdomen complete DATE OF EXAM: 04/08/2022 COMPARISON: NONE CLINICAL HISTORY: R10.11 RT UPPER QUADRANT PAIN. RUQ pain. TECHNIQUE: Multiple sonographic images of the abdomen are obtained. FINDINGS: EXAM MEASUREMENTS: Liver Length: 16.2 cm right normal is 15.5 cm. Gallbladder Wall: 0.27 cm CBD: 0.48 cm Spleen: 8.4 cm Right Kidney: 11.9 x 5.3 x 4.7 cm Left Kidney: 11.1 x 5.4 x 5.5 cm OFFICE RN NOTES: Exam is limited due to overlying bowel gas. Pancreas: Tail was not well seen. Liver: No abnormalities seen Gallbladder: Fold seen. Appears anechoic. Evidence for sonographic Bolden's sign: No CBD: Appears wnl Spleen: Limited due to gas. Right Kidney: Renal pelvis appears dilated, scanned post void as well. Left Kidney: No hydronephrosis or masses seen Upper IVC: Appears wnl Abd Aorta: Portions seen appear wnl, iliacs were obscured. IMPRESSION: 1. Minimal prominence of the liver size. 2. Minimal prominence of an extrarenal pelvis. 3. No acute ultrasound abnormality of the abdomen.
== END | disposition home or self-care (01) ==
LOC: RADUSWWP 09:11
PROVIDERS: ATTEND Internal Medicine Gastroenterology
DX: R10.11 Right upper quadrant pain (principal)
CPT/HCPCS: 76700

== ENCOUNTER → 2022-04-19 | Outpatient (CLI) | payer BC ==
[2022-04-19 14:49] LABS: Total Eosinophil Count 23 #EOS/uL (150-300)
[2022-04-19 15:24] LABS: Erythrocyte Sedimentation Rate 9 mm/hr (0-20)
== END | disposition home or self-care (01) ==
LOC: LABWHC1 10:06
PROVIDERS: ATTEND Internal Medicine Critical Care Medicine
DX: J45.909 Unspecified asthma, uncomplicated (principal)
CPT/HCPCS: 36415; 82785; 85008; 85652; 86141

== ENCOUNTER → 2022-08-26 | Outpatient (CLI) | payer BC ==
[2022-08-26 10:51] LABS: Basophils # (A) 0.03 X 10*3/uL (0.00-0.10); Basophils % (A) 0.9 %; Eosinophils # (A) 0.09 X 10*3/uL (0.04-0.35); Eosinophils % (A) 2.6 %; HCT 39.8 % (37.2-46.3); HGB 12.8 g/dL (12.0-15.0); Immature Grans, Automated 0.3 %; Lymphocytes # (A) 1.13 X 10*3/uL (0.90-5.00); Lymphocytes % (A) 32.6 %; MCH 29.8 pg (27.0-32.0); MCHC 32.2 g/dL (32.0-37.0); MCV 92.8 fL (80.0-97.0); Mean Platelet Volume 9.8 fL (9.5-12.2); Monocytes % (A) 14.4 %; NRBC Per 100 WBC 0 /100 WBCS (0.0-0.0); Neutrophils # (A) 1.71 X 10*3/uL (1.80-7.70); Neutrophils % (A) 49.2 %; Platelet Count 269 X 10*3/uL (140-440); RBC 4.29 X 10*6/uL (4.10-5.20); RDW 12.8 % (11.5-14.5); WBC 3.47 X 10*3/uL (4.50-10.00)
[2022-08-26 11:04] LABS: Chol/HDL Ratio 2.25 Ratio; LDL Cholesterol,Calculated 128.8 mg/dL (0.0-131.0); VLDL Calculation 8.16 mg/dL (5.00-40.00)
== END | disposition home or self-care (01) ==
LOC: LABWHC1 07:19
PROVIDERS: ATTEND Internal Medicine Critical Care Medicine
DX: E78.5 Hyperlipidemia, unspecified (principal); J45.50 Severe persistent asthma, uncomplicated; K58.9 Irritable bowel syndrome, unspecified; Z86.16 Personal history of COVID-19
CPT/HCPCS: 36415; 80061; 85025

== ENCOUNTER → 2022-09-03 | Outpatient (CLI) | payer BC ==
--- NOTE | 2022-09-03 09:25 | CT ---
EXAMINATION TYPE: CT chest wo con DATE OF EXAM: 09/03/2022 COMPARISON: None HISTORY: Asthma and difficulty breathing CT DLP: 553.0 mGycm. Automated Exposure Control for Dose Reduction was Utilized. TECHNIQUE: CT scan of the thorax is performed without IV contrast. FINDINGS: The lungs are clear of consolidative, interstitial or masslike density. There is no pleural effusion, pleural thickening or pneumothorax. The great vessels the chest are normal and there is no mediastinal, hilar or axillary adenopathy. There is no pleural effusion, pleural thickening or pneumothorax. Limited scanning the upper abdomen reveals no gross abnormality. The osseous structures are intact. IMPRESSION: No significant abnormality seen. No acute cardiopulmonary disease.
== END | disposition home or self-care (01) ==
LOC: RADCTMAIN 08:03
PROVIDERS: ATTEND Internal Medicine Critical Care Medicine
DX: J45.909 Unspecified asthma, uncomplicated (principal); R05.9 Cough, unspecified
CPT/HCPCS: 71250

== ENCOUNTER → 2022-10-17 | Outpatient (CLI) | payer BC ==
--- NOTE | 2022-10-18 11:33 | MM ---
Reason for Exam: Screening (asymptomatic). Last screening mammogram was performed 12 month(s) ago. Patient History: Menarche at age 15. First Full-Term at age 27. Hysterectomy at age 36. Perimenopausal. Patient has history of breast feeding. Other cancer, age 54. Hormonal Contraceptives, from age 20 until age 36. 2019, Excisional Biopsy on the Right side. Risk Values: Eva 5 year model risk: 1.6%. NCI Lifetime model risk: 10.7%. Prior Study Comparison: 08/30/2016 Bilateral Screening Mammogram, [facility]. 11/22/2017 Bilateral Screening Mammogram, [facility]. 08/15/2018 Bilateral Diagnostic Mammogram, [facility]. 10/03/2019 Bilateral Screening Mammogram, [facility]. 10/08/2020 Bilateral Screening Mammogram, [facility]. 10/11/2021 Bilateral MG 3D screening mammo w/cad, [facility]. Tissue Density: The breast tissue is extremely dense which could obscure a lesion on mammography. Findings: Analyzed By CAD. There is no suspicious group of microcalcifications or new suspicious mass in either breast. Stable benign calcification within the left breast. Overall Assessment: Benign, BI-RAD 2 Management: Screening Mammogram of both breasts in 1 year. A clinical breast exam by your physician is recommended on an annual basis and results should be correlated with mammographic findings. Note on Eva scores and lifetime risk: 1. A Eva score greater than 3% is considered moderate risk. If this is the case, consider specialist referral to assess eligibility for a risk reducing agent. If overall lifetime risk for the development of breast cancer is 20% or higher, the patient may qualify for future screening with alternating mammogram and breast MRI. Electronically signed and approved by: Prateek Riley D.O.
== END | disposition home or self-care (01) ==
LOC: RADMAMWWP 08:01
PROVIDERS: ATTEND Surgery
DX: Z12.31 Encounter for screening mammogram for malignant neoplasm of breast (principal)
CPT/HCPCS: 77063; 77067

== ENCOUNTER → 2022-10-27 | Outpatient (CLI) | payer BC ==
[2022-10-27 09:30] VITALS: BP 118/75; PULSE 81; RESP 18; TEMP 97.8
--- NOTE | 2022-10-27 09:41 | P.PN ---
Subjective Progress Note Date: 10/27/22 Principal diagnosis: fibrocystic breast changes fibrocystic breast dense fibrocystic breast disease Archana is a 57-year-old white female who comes for breast evaluation. She had a bilateral mammogram performed on 10-17-22 this was benign BIRADS 2. She does not have any masses of concern in her breast. She has had a resection of a basal cell carcinoma from the right upper chest wall. This was approximately 5 cm in length. [facility] Additionally she had liquid nitrogen applied to several areas of skin. She is not complaining of any recent increased breast pain. No complaint of any nipple discharge or skin changes. Does not complain of any new lumps masses or nodules in her breast. Her asthma has gotten worse over the past year. She is following with Dr. Valencia regarding this. She developed colovaginal in April 2022 and had "long COVID". Caffeine: One to 2 cups of coffee per day Nicotine: Negative Chocolate: Occasional Family history: Father: Melanoma Patient : basal cell cancer Hormonal history: Menarche: 14 , breast-fed: Yes for splenectomy 27 Menopause: Patient had a hysterectomy at the age of 36 ovaries were not removed control pills: 16 years Hormones: Negative Past surgical history: Hysterectomy ovaries were not removed Left inguinal hernia repair Bladder suspension Right breast surgery Excision basal cell carcinoma right chest wall Medical history: Connective tissue disease Asthma Irritable bowel syndrome Social history: Smoke: Negative Alcohol: One glass of wine per week Drugs: Negative Review of systems: HEENT: Wears glasses Lungs: Negative Heart: Negative GI: Irritable bowel syndrome : Status post hysterectomy Musculoskeletal: Connective tissue disease Neurologic: Negative Hematologic: Negative Endocrine: Negative ALLERGIES: Negative Objective - Vital Signs Vital signs: Vital Signs Temp 97.8 F 10/27/22 09:28 Pulse 81 10/27/22 09:28 Resp 18 10/27/22 09:28 BP 118/75 10/27/22 09:28 Pulse Ox 98 10/27/22 09:28 FiO2 Intake & Output 10/26/22 10/27/22 10/27/22 18:59 06:59 18:59 Weight 63.049 kg - Constitutional General appearance: Present: cooperative - EENT Eyes: Present: EOMI ENT: Present: hearing grossly normal - Neck Neck: Present: normal ROM - Respiratory Respiratory: bilateral: CTA - Cardiovascular Rhythm: regular Heart sounds: normal: S1, S2 - Gastrointestinal General gastrointestinal: Present: soft - Integumentary Integumentary: Present: normal turgor - Musculoskeletal Musculoskeletal: Present: gait normal - Psychiatric Psychiatric: Present: A&O x's 3, appropriate affect, intact judgment & insight - Additional findings Additional findings: Breast Exam: BRA: 36A inspection: bilateral grade 2 ptosis; left breast slightly larger than right breast Palpation: Right breast: Multi-positional exam fibrocystic changes no dominant masses or nodules of concern Right axilla: No adenopathy of concern Left breast: Multi-positional exam fibrocystic changes no dominant masses or nodules of concern Left axilla: No adenopathy of concern Assessment and Plan Assessment: Impression: Bilateral fibrocystic breast changes Plan: Repeat bilateral mammogram in 1 year with physician exam at that time; October 2023 Patient shouldn't to follow up sooner any questions or concerns CC: Dr. Reyes
== END ==
LOC: WWCWWP 09:17
PROVIDERS: ATTEND Surgery
DX: N60.11 Diffuse cystic mastopathy of right breast (principal); N60.12 Diffuse cystic mastopathy of left breast; J45.909 Unspecified asthma, uncomplicated; K58.9 Irritable bowel syndrome, unspecified; U09.9 Post COVID-19 condition, unspecified; Z85.828 Personal history of other malignant neoplasm of skin; Z91.011 Allergy to milk products; Z91.018 Allergy to other foods; Z79.51 Long term (current) use of inhaled steroids

== ENCOUNTER → 2023-11-14 | Outpatient (CLI) | payer BC ==
--- NOTE | 2023-11-17 15:10 | MM ---
Reason for Exam: Screening (asymptomatic). Last mammogram was performed 1 year(s) and 1 month(s) ago. Patient History: Menarche at age 15. First Full-Term at age 27. Hysterectomy at age 36. Perimenopausal. Patient has history of breast feeding. Other cancer, age 54. Hormonal Contraceptives, from age 20 until age 36. 2019, Excisional Biopsy on the Right side. Risk Values: Eva 5 year model risk: 1.6%. NCI Lifetime model risk: 10.4%. Prior Study Comparison: 10/08/2020 Bilateral Screening Mammogram, [facility]. 10/11/2021 Bilateral MG 3D screening mammo w/cad, [facility]. 10/17/2022 Bilateral MG 3D screening mammo w/cad, [facility]. Tissue Density: The breasts are extremely dense, which lowers the sensitivity of mammography. Findings: Analyzed By CAD. The pattern is symmetrical. There is an oval density with partially obscured margins in the upper outer posterior left breast best visualized on the mediolateral oblique. This measures 0.9 cm in diameter and appears to be stable. No suspicious groups of microcalcifications, spiculated or lobular masses, architectural distortion or other secondary signs of malignancy are mammographically apparent. Overall Assessment: Benign, BI-RAD 2 Management: Screening Mammogram of both breasts in 1 year. A negative mammogram report should not preclude additional follow up of suspicious palpable abnormalities. Patient should continue monthly self breast exam. A clinical breast exam by your physician is recommended on an annual basis and results should be correlated with mammographic findings. Note on Eva scores and lifetime risk: 1. A Eva score greater than 3% is considered moderate risk. If this is the case, consider specialist referral to assess eligibility for a risk reducing agent. 2. If overall lifetime risk for the development of breast cancer is 20% or higher, the patient may qualify for future screening with alternating mammogram and breast MRI. Electronically signed and approved by: Rafael Joshua D.O. Radiologis
== END | disposition home or self-care (01) ==
LOC: RADMAMWWP 08:26
PROVIDERS: ATTEND Surgery
DX: Z12.31 Encounter for screening mammogram for malignant neoplasm of breast (principal)
CPT/HCPCS: 77063; 77067

== ENCOUNTER → 2023-11-17 | Outpatient (CLI) | payer BC ==
--- NOTE | 2023-11-20 08:29 | USB ---
Reason for Exam: Clinical finding. Patient History: Menarche at age 15. First Full-Term at age 27. Hysterectomy at age 36. Perimenopausal. Patient has history of breast feeding. Other cancer, age 54. Hormonal Contraceptives, from age 20 until age 36. 2019, Excisional Biopsy on the Right side. Risk Values: Eva 5 year model risk: 1.6%. NCI Lifetime model risk: 10.4%. Technique: Method: Targeted. Prior Study Comparison: 10/08/2020 Bilateral Screening Mammogram, [facility]. 10/11/2021 Bilateral MG 3D screening mammo w/cad, [facility]. 10/17/2022 Bilateral MG 3D screening mammo w/cad, [facility]. Findings: The area of palpable concern of the left breast and the axilla of the left breast were scanned. Left axilla is scanned with real-time linear array scanning sonography. No suspicious axillary lymph nodes present. No thickened cortex evident. Management: Screening Mammogram of both breasts in 1 year. A clinical breast exam by your physician is recommended on an annual basis and results should be correlated with mammographic findings. This exam should not preclude additional follow-up of suspicious palpable abnormalities. Results were given to the patient verbally at the time of exam. Electronically signed and approved by: Rafael Joshua D.O. Radiologis
== END | disposition home or self-care (01) ==
LOC: RADUSWWP 14:50
PROVIDERS: ATTEND Surgery
DX: N63.0 Unspecified lump in unspecified breast (principal)

== ENCOUNTER → 2023-11-17 | Outpatient (CLI) | payer BC ==
[2023-11-17 14:12] VITALS: BP 91/59; PULSE 70; RESP 16
--- NOTE | 2023-11-17 14:35 | P.PN ---
Subjective Progress Note Date: 11/17/23 Principal diagnosis: fibrocystic breast changes 11-17-23 Principal diagnosis: fibrocystic breast changes dense fibrocystic breast disease Archana is a 58-year-old white female who comes for breast evaluation. She had a bilateral mammogram performed on 11-14-23 this result is pending. She does not have any masses of concern in her breast. She has had a resection of a basal cell carcinoma from the right upper chest wall. This was approximately 5 cm in length. She is following at of . Additionally she had liquid nitrogen applied to several areas of skin. She is not complaining of any recent increased breast pain. No complaint of any nipple discharge or skin changes. Does not complain of any new lumps masses or nodules in her breast. Her asthma has gotten worse over the past year. She is following with Dr. Valencia regarding this. She had long COVID in 2021. She also had COVID in 2023. She is complaining of some fullness in her left axilla. It is uncomfortable at times, her bra doen'st correctly. She did start hormone replacement therapy about 30 days, progesterone orally at night 100 mg and a lotion that has some testosterone and some estrogen and she applies that to her skin daily. The feel ing in the axilla started prior to this and they do not seem to be related. She is not complaining of any other lumps masses or nodules of concern in either breast. Caffeine: One to 2 cups of coffee per day Nicotine: Negative Chocolate: Occasional Family history: Father: Melanoma Patient : basal cell cancer Hormonal history: Menarche: 14 , breast-fed: Yes for splenectomy 27 Menopause: Patient had a hysterectomy at the age of 36 ovaries were not removed control pills: 16 years Hormones: Negative Past surgical history: Hysterectomy ovaries were not removed Left inguinal hernia repair Bladder suspension Right breast surgery Excision basal cell carcinoma right chest wall Medical history: Connective tissue disease Asthma Irritable bowel syndrome Social history: Smoke: Negative Alcohol: One glass of wine per week Drugs: Negative Review of systems: HEENT: Wears glasses Lungs: Negative Heart: Negative GI: Irritable bowel syndrome : Status post hysterectomy Musculoskeletal: Connective tissue disease Neurologic: Negative Hematologic: Negative Endocrine: Negative ALLERGIES: Negative Objective - Vital Signs Vital signs: Vital Signs Temp Pulse 70 11/17/23 14:08 Resp 16 11/17/23 14:08 BP 91/59 11/17/23 14:08 Pulse Ox 90 L 11/17/23 14:08 FiO2 Intake & Output 11/16/23 11/17/23 11/17/23 18:59 06:59 18:59 Weight 62.596 kg - Constitutional General appearance: Present: average body habitus - EENT Eyes: Present: EOMI ENT: Present: hearing grossly normal - Neck Neck: Present: normal ROM - Respiratory Respiratory: bilateral: CTA - Cardiovascular Heart sounds: normal: S1, S2 - Gastrointestinal General gastrointestinal: Present: soft - Integumentary Integumentary: Present: normal turgor - Musculoskeletal Musculoskeletal: Present: gait normal - Psychiatric Psychiatric: Present: A&O x's 3, appropriate affect, intact judgment & insight - Additional findings Additional findings: Breast Exam: BRA: 36A inspection: bilateral grade 2 ptosis; left breast slightly larger than right breast Palpation: Right breast: Multi-positional exam fibrocystic changes no dominant masses or nodules of concern Right axilla: No adenopathy of concern, shotty adenopathy Left breast: Multi-positional exam fibrocystic changes no dominant masses or nod ules of concern Left axilla: No adenopathy of concern, shotty adenopathy, no masses or lesions to account for the patient's symptoms Assessment and Plan Assessment: Impression: Bilateral fibrocystic breast changes Plan: Repeat bilateral mammogram in 1 year with physician exam at that time; October 2024 Patient to follow up sooner any questions or concerns Ultrasound of the left axilla secondary to the patient's feeling of fullness and pain and patient to follow-up after ultrasound is done CC: Dr. Reyes
== END ==
LOC: WWCWWP 13:21
PROVIDERS: ATTEND Surgery
DX: N60.11 Diffuse cystic mastopathy of right breast (principal); N60.12 Diffuse cystic mastopathy of left breast; J45.909 Unspecified asthma, uncomplicated; Z85.828 Personal history of other malignant neoplasm of skin; Z86.16 Personal history of COVID-19; Z91.018 Allergy to other foods; Z91.011 Allergy to milk products; Z79.51 Long term (current) use of inhaled steroids; Z79.899 Other long term (current) drug therapy

== ENCOUNTER 2023-12-27 11:00 | Day surgery (SDC) | payer BC ==
[2023-12-27] MEDS ORDERED: LACTATED RINGERS 1,000 ML BAG ONE (12:13)
[2023-12-27] MEDS ORDERED: KETAMINE HCL IN 0.9 % NACL 50 MG/5 ML SYRINGE ONE (12:13)
[2023-12-27] MEDS ORDERED: MIDAZOLAM 2 MG/2 ML VIAL ONE (12:13)
[2023-12-27] MEDS ORDERED: LIDOCAINE 1% INJ 10MG/ML (20 ML MDV) ONE (12:13)
[2023-12-27] MEDS ORDERED: GLYCOPYRROLATE 0.2 MG/ML 2 ML VIAL ONE (12:13)
[2023-12-27] MEDS ORDERED: PROPOFOL 10 MG/ML 20 ML VIAL IV ONE (12:13)
[2023-12-27] MEDS ORDERED: ONDANSETRON 4 MG/2 ML VIAL ONE (12:13)
== END 2023-12-27 13:35 ==
LOC: ORWHC2ENDO 11:00
PROVIDERS: ATTEND Internal Medicine Critical Care Medicine
DX: J45.50 Severe persistent asthma, uncomplicated (principal); J40 Bronchitis, not specified as acute or chronic; K58.9 Irritable bowel syndrome, unspecified; Z79.51 Long term (current) use of inhaled steroids; Z79.899 Other long term (current) drug therapy; Z91.011 Allergy to milk products; Z91.018 Allergy to other foods
CPT/HCPCS: 31624; 88108; 88305

== ENCOUNTER → 2023-12-28 | Outpatient (CLI) | payer BC | END | disposition home or self-care (01) | LOC: LABPRL 12:30 | PROVIDERS: ATTEND Internal Medicine Critical Care Medicine | DX: J45.50 Severe persistent asthma, uncomplicated (principal) | CPT/HCPCS: 87070; 87102; 87116; 87205; 87206; 87496; 87498; 87502; 87529; 87634; 87635; 87798; 89050 ==

== ENCOUNTER 2024-05-30 11:19 | Day surgery (SDC) | payer BC ==
[2024-05-28 08:48] VITALS: BMI 21.9
[~2024-05-30 11:19] MED LIST changes: -DEXAMETHASONE SOD PHOSPHATE 10 MG/ML 1 ML VIAL IV ONE; -HEPARIN SODIUM,PORCINE 5,000 UNIT/ML 1 ML VIAL SQ ONE; -LACTATED RINGERS 1,000 ML IV ONE; +LIDOCAINE 1% (10MG/ML) FOR IV START INTRADERMA PRN; -LIDOCAINE 1% 20 ML VIAL (10MG/ML) FOR IV START INTRADERMA ONE; -LIDOCAINE 1% INJ 10MG/ML (20 ML MDV) ONE; -LIDOCAINE 1% INJ 10MG/ML (20 ML MDV) SQ ONE; -MIDAZOLAM 2 MG/2 ML VIAL IV PRN; -MIDAZOLAM 2 MG/2 ML VIAL ONE; -ONDANSETRON 4 MG/2 ML VIAL IVP ONE; -PROPOFOL 10 MG/ML 20 ML VIAL IV ONE; -SCOPOLAMINE 1.5MG/72HR PATCH TRANSDERM ONE; -WATER FOR INJECTION, STERILE 10 ML VIAL IV ONE; -ceFAZolin IN SWFI 2 GM/20 ML SYRINGE IVP ONE; -ePHEDrine SULFATE/0.9% NACL/PF 50 MG/5 ML SYRINGE IV ONE; -fentaNYL (PF) 50 MCG/ML 2 ML AMP ONE
[2024-05-30 11:53] VITALS: TEMP 97.1
[2024-05-30] MEDS: IV FLUID CONTINUATION 1,000 ML IV ONE (12:01)
[2024-05-30] MEDS: LACTATED RINGERS 1,000 ML IV SCH (12:02)
[2024-05-30] MEDS: ATROPINE SULFATE 0.4 MG/ML 1 ML VIAL IM ONE (12:03)
[2024-05-30] MEDS ORDERED: KETAMINE HCL IN 0.9 % NACL 50 MG/5 ML SYRINGE ONE (12:08)
[2024-05-30] MEDS ORDERED: GLYCOPYRROLATE 0.2 MG/ML 2 ML VIAL ONE (12:08)
[2024-05-30] MEDS ORDERED: LIDOCAINE 2% (PF) 20 MG/ML 5 ML VIAL ONE (12:08)
[2024-05-30] MEDS ORDERED: MIDAZOLAM 2 MG/2 ML VIAL ONE (12:08)
[2024-05-30] MEDS ORDERED: PROPOFOL 10 MG/ML 20 ML VIAL IV ONE (12:08)
[2024-05-30] MEDS: LIDOCAINE 2% INJ 20 MG/ML INTRATRACH ONE (12:15)
[2024-05-30 13:03] VITALS: BP 126/76; PULSE 97; RESP 17
--- NOTE | 2024-05-30 13:29 | PCN ---
PROCEDURE NOTE PROCEDURES PERFORMED: Bronchoscopy, airway examination, therapeutic lavage, BAL right middle lobe. PREOPERATIVE DIAGNOSIS: Severe persistent asthma. POSTOPERATIVE DIAGNOSIS: Severe persistent asthma. OPERATORS: Dr. Valencia and Dr. Mendoza. There was informed consent and universal timeout. The patient's procedure took place in [facility] room #1. ANESTHESIA PROVIDED: Monitored anesthesia care. DESCRIPTION OF PROCEDURE: After the patient was adequately sedated and being fully monitored, the bronchoscope was inserted through the right nostril. It passed through the right nasopharynx into the oropharynx. Next, into the hypopharynx, the hypopharyngeal structures appeared normal including anterior commissure, true cords, false cords, arytenoids, piriform sinuses, right and left, and vallecula. The glottic opening was topicalized. The bronchoscope was pushed through the glottic opening into the trachea. The trachea appeared normal. Tracheal bladimir was sharp. The right and left mainstem were topicalized. The right and left lung were then evaluated. The right upper lobe and its 3 segments, right middle lobe and its 2 segments, the right lower lobe and its 5 segments, left upper lobe proper and its 2 segments, lingula and its 2 segments, and left lower lobe and its 4 segments were all evaluated, and found to have similar findings of diffuse airway erythema and hyperemia. There was some vascular prominence. There was some mucosal friability. There was no dominant mass or tumor. The secretions were noted particularly on the left side. Those secretions were suctioned. The bronchoscope was wedged into the right middle lobe. A formal BAL took place. The patient tolerated the procedure well. The fluid will be sent for analysis. Thirty mL of fluid was recovered. There was no immediate complication. The bronchoscope was withdrawn. The findings were shared with the patient's . MMODL / IJN: [id number] /
[2024-05-30 21:35] LABS: Appearance,BF Cloudy (Clear); RBC, Body Fluid 4175 /UL (0-2000)
[2024-05-31 10:40] LABS: Nucleated Cells, Body Fluid 620 /UL
== END 2024-05-30 13:26 | disposition home or self-care (01) ==
LOC: ORWHC2ENDO 11:19
PROVIDERS: ATTEND Internal Medicine Critical Care Medicine
DX: J42 Unspecified chronic bronchitis (principal); J45.51 Severe persistent asthma with (acute) exacerbation; K58.9 Irritable bowel syndrome, unspecified; M81.0 Age-related osteoporosis without current pathological fracture; Z79.620 Long term (current) use of immunosuppressive biologic; Z79.51 Long term (current) use of inhaled steroids; Z79.899 Other long term (current) drug therapy; Z86.16 Personal history of COVID-19
CPT/HCPCS: 87798 ×3; 87496; 87498; 87529; 88108; 88305; 89050; 87502; 87634; 87070; 87205; 87116; 87102; 87206; 87635; 31624; J2250; J0461; J2704; J2003 ×2; J1596

== ENCOUNTER 2024-11-12 12:16 | Day surgery (SDC) | payer BC ==
[~2024-11-12 12:16] MED LIST changes: -LIDOCAINE 1% (10MG/ML) FOR IV START INTRADERMA PRN
[2024-11-12] MEDS: LIDOCAINE 2% GLYDO JELLY 6 ML APPL MISCELLANE ONE ×2 (12:50→13:21)
[2024-11-12] MEDS: LIDOCAINE 2% INJ 20 MG/ML INTRATRACH ONE ×2 (12:51→13:24)
[2024-11-12] MEDS: IV FLUID CONTINUATION 1,000 ML IV ONE (12:55)
[2024-11-12] MEDS: ATROPINE SULFATE 0.4 MG/ML 1 ML VIAL IM ONE (12:56)
[2024-11-12] MEDS: LACTATED RINGERS 1,000 ML IV SCH (12:57)
[2024-11-12 13:08] VITALS: TEMP 98.1
[2024-11-12] MEDS ORDERED: MIDAZOLAM 2 MG/2 ML VIAL ONE (13:09)
[2024-11-12] MEDS ORDERED: LIDOCAINE 1% INJ 10MG/ML (20 ML MDV) ONE (13:09)
[2024-11-12] MEDS ORDERED: PROPOFOL 10 MG/ML 20 ML VIAL IV ONE (13:09)
[2024-11-12 13:11] LABS: Glucose,Whole Blood 93 mg/dL (70-110)
[2024-11-12 13:49] VITALS: BP 109/88; PULSE 96; RESP 16
--- NOTE | 2024-11-12 20:23 | OP ---
OPERATIVE REPORT DATE OF SERVICE : 11/12/2024 PROCEDURE: Bronchoscopy, airway examination, therapeutic lavage, BAL right middle lobe. PREOPERATIVE DIAGNOSIS: Severe chronic bronchial asthma. POSTOPERATIVE DIAGNOSIS: Severe chronic bronchial asthma.. There was informed consent and universal timeout. The patient's procedure took place in room #1, [facility]. Anesthesia provided monitored anesthesia care. [employer] TRAINING MANAGER: Dr. Ginette Mendoza. DESCRIPTION OF PROCEDURE: After the patient was adequately sedated and being fully monitored, the bronchoscope tip was inserted through the right naris. We passed through the right nasopharynx into the oropharynx. The hypopharynx was identified and topicalized. The hypopharyngeal structures, including anterior commissure, true cords, false cords, arytenoids, piriform sinuses, right and left, vallecula, epiglottis, all appeared relatively normal. The glottic opening was topicalized and the bronchoscope was pushed through the glottic opening into the trachea. Trachea appeared relatively normal, for some mild tracheomalacia. There were some secretions noted in the trachea, they were suctioned. The tracheal bladimir was sharp. The right and left mainstem were topicalized with lidocaine. The right upper lobe and its 3 segments right middle lobe and its 2 segments, right lower lobe and its 5 segments, the left upper lobe proper and its 2 segments, lingula and its 2 segments and left lower lobe and its 4 segments, all had similar findings of diffuse airway erythema and hyperemia. There was some mucosal friability. There was some vascular engorgement. There were purulent looking secretions noted throughout. They were suctioned without difficulty. Saline was instilled into the very segments and the saline was suctioned back. Next, after the airways were cleansed, the bronchoscope was wedged into the right middle lobe. A formal BAL was performed. 30 mL of turbid fluid was recovered. It will be sent to the laboratory for analysis. The patient tolerated the procedure well. The patient will be taken to the Postanesthesia Care Unit. There was no immediate complication. MMODL / IJN: [id number] /
[2024-11-12 22:08] LABS: Appearance,BF Bloody (Clear)
[2024-11-13 14:35] LABS: Nucleated Cells, Body Fluid 248 /UL
== END 2024-11-12 14:06 | disposition home or self-care (01) ==
LOC: ORWHC2ENDO 12:16
PROVIDERS: ATTEND Internal Medicine Critical Care Medicine
DX: J45.50 Severe persistent asthma, uncomplicated (principal); K58.9 Irritable bowel syndrome, unspecified; E11.9 Type 2 diabetes mellitus without complications; Z90.89 Acquired absence of other organs; Z90.10 Acquired absence of unspecified breast and nipple; Z89.111 Acquired absence of right hand; Z79.51 Long term (current) use of inhaled steroids; Z79.899 Other long term (current) drug therapy
CPT/HCPCS: 89050; 87070; 87205; 87116; 87102; 87206; 31624; J2250; J0461; J2003 ×2; J2704; 88108; 88305

== ENCOUNTER → 2024-11-14 | Outpatient (CLI) | payer BC ==
--- NOTE | 2024-11-14 10:36 | MM ---
Reason for Exam: Screening (asymptomatic). Last screening mammogram was performed 12 month(s) ago. Patient History: Menarche at age 15. First Full-Term at age 27. Hysterectomy at age 36. Perimenopausal. Patient has history of breast feeding. Other cancer, age 54. Hormonal Contraceptives, from age 20 until age 36. 2019, Excisional Biopsy on the Right side. Risk Values: Eva 5 year model risk: 1.7%. NCI Lifetime model risk: 10.2%. Prior Study Comparison: 10/11/2021 Bilateral MG 3D screening mammo w/cad, [facility]. 10/17/2022 Bilateral MG 3D screening mammo w/cad, [facility]. 11/14/2023 Bilateral MG 3D screening mammo w/cad, [facility]. Tissue Density: The breasts are heterogeneously dense, which may obscure small masses. Findings: Analyzed By CAD. Stable subtle distortion posteriorly in the right breast from prior excision. There is no suspicious group of microcalcifications or new suspicious mass in either breast. Overall Assessment: Benign, BI-RAD 2 Management: Screening Mammogram of both breasts in 1 year. . Patient should continue monthly self-breast exams. A clinical breast exam by your physician is recommended on an annual basis. This exam should not preclude additional follow-up of suspicious palpable abnormalities. Note on Eva scores and lifetime risk: 1. A Eva score greater than 3% is considered moderate risk. If this is the case, consider specialist referral to assess eligibility for a risk reducing agent. 2. If overall lifetime risk for the development of breast cancer is 20% or higher, the patient may qualify for future screening with alternating mammogram and breast MRI. [facility], , 11/14/2024 10:02 AM. Electronically signed and approved by: Dwight Cruz M.D.
== END | disposition home or self-care (01) ==
LOC: RADMAMWWP 09:31
PROVIDERS: ATTEND Surgery
DX: Z12.31 Encounter for screening mammogram for malignant neoplasm of breast (principal); R92.333 Mammographic heterogeneous density, bilateral breasts; Z92.0 Personal history of contraception
CPT/HCPCS: 77063; 77067

== ENCOUNTER → 2024-11-28 | Outpatient (CLI) | payer BC ==
[2024-11-28 11:23] VITALS: BP 113/72; PULSE 59; RESP 17; TEMP 98.3
--- NOTE | 2024-11-28 11:25 | P.PN ---
Subjective Progress Note Date: 11/28/24 Principal diagnosis: fibrocystic 11-28-24 Principal diagnosis: fibrocystic breast changes Archana is a 59-year-old white female who comes for breast evaluation. She had a bilateral mammogram performed on 11-14-24 which was BI-RADS 2. Additionally she had an ultrasound of the area for which she was concerned of some palpable changes in the left axilla on 1223 which no specific lesions of concern. She had a basal cell carcinoma of the right upper chest wall resected at [facility] approximately 1 year ago. She is following with DR. Valencia for severe complicated asthma. She had COVID three times and the last time was in November 2023. left axillary discomfort improved, not complaining of any lumps masses or nodules of concern at this time in either breast or under her arms She has been diagnosed as pre-diabetic Eva Risk: 5 year 1.7% lifetime risk: 10.2% Now for her asthma tezspirw a biologic every 4 weeks for ever zithromax, TWF 250 mg treligy inhaler Q am (seriod) singular at night She had a bronchoscopy May 30 and cleared out her bronchi and feels better She will have a bronchoscopy four times a year Is not complaining of any new lumps masses or nodules of concern in either breas t. Caffeine: One to 2 cups of coffee per day Nicotine: Negative Chocolate: Occasional Family history: Father: Melanoma Patient : basal cell cancer Hormonal history: Menarche: 14 , breast-fed: Yes for splenectomy 27 Menopause: Patient had a hysterectomy at the age of 36 ovaries were not removed control pills: 16 years Hormones: Negative Past surgical history: Hysterectomy ovaries were not removed Left inguinal hernia repair Bladder suspension Right breast surgery Excision basal cell carcinoma right chest wall Medical history: Connective tissue disease Asthma Irritable bowel syndrome Social history: Smoke: Negative Alcohol: One glass of wine per week Drugs: Negative Review of systems: HEENT: Wears glasses Lungs: Negative Heart: Negative GI: Irritable bowel syndrome : Status post hysterectomy Musculoskeletal: Connective tissue disease Neurologic: Negative Hematologic: Negative Endocrine: Negative ALLERGIES: Negative Objective - Constitutional General appearance: Present: cooperative - EENT Eyes: Present: EOMI ENT: Present: hearing grossly normal - Neck Neck: Present: normal ROM - Respiratory Respiratory: bilateral: CTA - Cardiovascular Rhythm: regular Heart sounds: normal: S1, S2 - Integumentary Integumentary: Present: normal turgor - Musculoskeletal Musculoskeletal: Present: gait normal - Psychiatric Psychiatric: Present: A&O x's 3 - Additional findings Additional findings: Breast Exam: BRA: 36A inspection: bilateral grade 2 ptosis; left breast slightly larger than right breast Palpation: Right breast: Multi-positional exam fibrocystic changes no dominant masses or nodules of concern Right axilla: No adenopathy of concern, shotty adenopathy improved Left breast: Multi-positional exam fibrocystic changes no dominant masses or nodules of concern Left axilla: No adenopathy of concern, shotty adenopathy improved, Assessment and Plan Assessment: Impression: Bilateral fibrocystic breast changes Plan: Repeat bilateral mammogram October 2025, appointment to follow Patient to follow up sooner any questions or concerns CC: Dr. Reyes, Dr. Valencia
== END ==
LOC: WWCWWP 10:22
PROVIDERS: ATTEND Surgery
DX: N60.11 Diffuse cystic mastopathy of right breast (principal); N60.12 Diffuse cystic mastopathy of left breast; Z91.011 Allergy to milk products; Z91.018 Allergy to other foods